=== PATIENT | female | born 1990 | race Caucasian/White ===

== ENCOUNTER 2017-05-21 17:56 | Inpatient (IN) | payer BC ==
--- OUTSIDE RECORDS SUMMARY | 2017-05-21 18:01 | XMS REPORT | Continuity of Care Document ---
:1990 Author Organization [facility] [place] [address] Care Team Providers Name Role Phone Provider, None Per Patient Primary Care Provider Unavailable Source Comments This disclosure is being made pursuant to the [employer] program and maynot contain all information available regarding this patient.[facility] Active Allergies and Adverse Reactions Allergen Noted Date Severity Reactions Comments Sulfa Antibiotics 06/10/2014 High Hives Current Medications Be aware that medications may not be up to date as of this document. Alwaysverify current medications with the patient. Prescription Sig. Disp. Refills Start Date End Date Status Multiple Vitamin Take by mouth. Active (MULTIVITAMIN) capsule zolpidem (AMBIEN) 10 MG Take 10 mg by Active tablet mouth. lidocaine (LIDODERM) 5 % Place 1 patch 5 patch 0 07/03/2014 Active onto the skin daily. cyclobenzaprine Take 1 tablet 30 tablet 0 07/21/2014 Active (FLEXERIL) 10 MG tablet by mouth 2 (two) times daily as needed for Muscle spasms. naproxen (NAPROSYN) 500 1 tab by mouth 30 tablet 1 10/10/2014 Active MG tablet 1-2 times daily with food as needed for pain. 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 Dx); Antibiotic-induced yeast infection Social History Tobacco Use Types Packs/Day Years Used Date Never Smoker Smokeless Tobacco: Never Used Alcohol Use Drinks/Week oz/Week Comments Yes Alcoholic Drinks/day: CURRENT ALCOHOL USER Last Filed Vital Signs Vital Sign Reading Time Taken Blood Pressure 107/61 03/15/2017 2:45 PM CDT Pulse 94 03/15/2017 2:45 PM CDT Temperature 35.3 C (95.6 F) 03/15/2017 2:45 PM CDT Respiratory Rate 16 03/15/2017 2:45 PM CDT Height 1.626 m (5' 4") 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 Weight 82.555 kg (182 lb) 03/15/2017 2:45 PM CDT Body Mass Index 31.22 03/15/2017 2:45 PM CDT Oxygen Saturation 98% 03/15/2017 2:45 PM CDT Plan of Care Health Maintenance Due Date Last Done Comments Tetanus/Pertussis (1 - Tdap) 2008 Pap Smear 2010 Influenza Immunization (#1) 2016 Results from Last 3 Months Not on file Insurance Payer Benefit Plan / Subscriber ID Type Phone Address Group [employer] [facility] [id number] Out of State [phone] [address] [facility] [place] [address] Home: [place] [phone] [place] [phone]
--- OUTSIDE RECORDS SUMMARY | 2017-05-21 18:15 | XMS REPORT | Continuity of Care Document ---
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
[2017-05-21] MEDS: DEXTROSE 5%-LACTATED RINGERS 1,000 ML IV PRN (19:00)
[2017-05-21] MEDS ORDERED: OXYTOCIN/DEXTROSE 5%-WATER 30 UNITS/500 ML BAG IV ONE (19:25)
[2017-05-21] MEDS ORDERED: RINGER'S SOLUTION,LACTATED 1,000 ML IV ONE (19:25)
[2017-05-21] MEDS ORDERED: LIDOCAINE HCL 50 ML VIAL PERI PRN (19:25)
[2017-05-21] MEDS ORDERED: RINGER'S SOLUTION,LACTATED 1,000 ML IV PRN (19:25)
[2017-05-21] MEDS ORDERED: PENICILLIN G POTASSIUM 5 MILLIONUNT in DEXTROSE 5 % IN WATER 100 ML IV ONE ×2 (20:00)
[2017-05-22] MEDS: PENICILLIN G POTASSIUM 2.5 MILLIONUNT in DEXTROSE 5 % IN WATER 100 ML IV SCH ×4 (00:27→04:15)
[2017-05-22] MEDS ORDERED: ONDANSETRON HCL/PF 2 MG/ML VIAL IV PRN (04:01)
[2017-05-22] MEDS ORDERED: NALOXONE HCL 1 MG/1 ML SYRG IV PRN (04:01)
[2017-05-22] MEDS ORDERED: BUPIVACAINE HCL/0.9 % NACL/PF 250 ML EP PRN (04:01)
[2017-05-22] MEDS ORDERED: fentaNYL CITRATE/PF 50 MCG/ML AMPUL IT SCH (04:15)
--- NOTE | 2017-05-22 04:24 | OR ---
Anesthesia Pre Procedure Eval Date of Service: 05/22/17 Pre Procedure Evaluation: Anesthesia Pre Procedure Evaluation Heart Rate: 75 Blood Pressure: 128/74 Termperature: 36.3 Respiratory Rate: 18 SaO2: 100% DATE: 05/22/2017 TIME: 02 23 INDICATIONS: Active labor, labor pain PAST MEDICAL HISTORY: Primary per patient in active labor requesting labor analgesia EXAM: Heart regular; lungs clear ASSESSMENT OF MEDICAL STATUS: Appropriate candidate for labor analgesia PLANNED PROCEDURE: Combination spinal epidural for labor analgesia Home Medications: HOME MEDICATIONS FLUoxetine HCL [Prozac] 20 mg PO DAILY 05/06/17 [Last Taken 05/21/17] Vit#96/Ferrous Fum/FA [ S] 1 tab PO HS 05/06/17 [Last Taken ] Fexofenadine HCl [Mckenzie Allergy] 180 mg PO DAILY 05/21/17 [Last Taken 05/21/17 ]
[2017-05-22] MEDS: DEXTROSE 5%-LACTATED RINGERS 1,000 ML IV PRN (04:26)
--- NOTE | 2017-05-22 04:49 | OR ---
Anesthesia Procedure Note - Anesthesia Procedure Note Date of Service: 05/22/17 Narrative: 05/22/17 04:46 ANESTHESIA PROCEDURE NOTE Date of Procedure: 05/22/2017 Time of procedure: 02 23. Performed by: BELL Nuñez CRNA, MSN Sales Support Rep: Korin Schwartz RN. Preprocedure diagnosis: Active labor, labor pain. Post procedure diagnosis: Same. Procedure:Epidural for labor analgesia L3 4. Indications: Labor pains. Findings: See below. Details of the procedure: The patient was placed on the side of the bed in sitting positionand prepped with DuraPrep then draped in a sterile fashion. Lidocaine 1% was infiltrated to the skin and subcutaneous tissues at the level of the L3 4 interspace. An 18-gauge Touhy needle was used to approach the epidural space with loss of resistance technique. Once loss of resistance was achieved a 24-gauge Pencan needle was passed through the epidural needle and CSF was contacted. After CSF returned fentanyl 20 g of fentanyl was injected in the spinal needle was removed the epidural catheter was then threaded approximately 4 cm in the epidural needle was removed. The catheter was taped in place and after careful aspiration 3 mL of 1.5% lidocaine with 1-200,000 epinephrine was injected without change in maternal heart rate or sensorium. . EBL: Minimal. Fluids: N/A. Specimen: N/A. Post procedure condition: The patient tolerated the procedure well with good relief. No complications were noted. Thank you for this consultation. Oskar Francis CRNA, BELL, MSN
[2017-05-22] MEDS ORDERED: BISACODYL 10 MG SUPP.RECT RC PRN (08:06)
[2017-05-22] MEDS ORDERED: HYDROCORTISONE 30 APPL TUBE TP PRN (08:06)
[2017-05-22] MEDS ORDERED: OXYTOCIN/DEXTROSE 5%-WATER 30 UNITS/500 ML BAG IV ONE (08:06)
[2017-05-22] MEDS ORDERED: BENZOCAINE/MENTHOL 81 SPRAY CAN TP PRN (08:06)
[2017-05-22] MEDS ORDERED: SENNOSIDES 8.6 MG TABLET PO PRN (08:06)
[2017-05-22] MEDS ORDERED: oxyCODONE HCL/ACETAMINOPHEN 1 TAB TABLET PO PRN (08:06)
--- NOTE | 2017-05-22 08:11 | PN ---
Progess Note - Interim Narrative: 05/22/17 08:07 Spontaneous Vaginal Delivery Viable male with APGARS of 8 at 1 min and 9 at 5 min. Presentation was JULIA at 0748. No nuchal cord. Anterior and posterior shoulders delivered without difficulty. The baby was placed on the maternal abdomen and dried and stimulated. The cord was clamped and cut after approximately 60 seconds. Weight: 5 pounds 13.0 ounces or 2638 g Placenta was delivered spontaneously and intact. No lacerations were noted. Estimated blood loss: 200 ml Mother and baby tolerated delivery well. History for MU Definition: * The number of deliveries resulting in a live the patient experienced prior to current hospitalization * The previous delivery of live twins or any live multiple gestation is considered one live event. *If primagravida or nulliparous is documented select zero for the number of previous live births. Live Events: 0
[2017-05-22] MEDS: IBUPROFEN 800 MG TABLET PO PRN ×2 (13:33→21:40)
[2017-05-22] MEDS: oxyCODONE HCL/ACETAMINOPHEN 1 TAB TABLET PO PRN ×3 (13:33→21:40)
[2017-05-22] MEDS: DOCUSATE SODIUM 100 MG CAPSULE PO SCH ×2 (15:20→21:29)
[2017-05-22] MEDS: GLYCERIN/WITCH HAZEL LEAF 40 APPL BOX TP PRN (17:40)
[2017-05-23] MEDS: oxyCODONE HCL/ACETAMINOPHEN 1 TAB TABLET PO PRN ×2 (01:40→23:39)
[2017-05-23] MEDS: IBUPROFEN 800 MG TABLET PO PRN ×3 (04:44→19:25)
--- NOTE | 2017-05-23 08:59 | PN ---
Progess Note - Interim Narrative: 05/23/17 08:58 progress note Subjective: The patient is doing well. She is ambulating, voiding, tolerating by mouth. She has minimal pain and moderate lochia. Objective: General: No acute distress Abdomen: Soft, nontender, fundus is firm just below the umbilicus Extremities: minimal edema, nontender to palpation Assessment and plan: day 1 Feeding: breast Pain: Controlled with by mouth medication Routine care.
[2017-05-23] MEDS: DOCUSATE SODIUM 100 MG CAPSULE PO SCH ×2 (09:45→20:27)
[2017-05-23] MEDS: GLYCERIN/WITCH HAZEL LEAF 40 APPL BOX TP PRN (22:23)
[2017-05-24] MEDS: oxyCODONE HCL/ACETAMINOPHEN 1 TAB TABLET PO PRN (07:21)
[2017-05-24] MEDS: IBUPROFEN 800 MG TABLET PO PRN (07:21)
[2017-05-24] MEDS: DOCUSATE SODIUM 100 MG CAPSULE PO SCH ×2 (07:21→10:39)
--- NOTE | 2017-05-24 09:08 | PN ---
Progess Note - Interim Narrative: 05/24/17 09:07 progress note Subjective: The patient is doing well. She is ambulating, voiding, tolerating by mouth. She has minimal pain and moderate lochia. Objective: General: No acute distress Abdomen: Soft, nontender, fundus is firm just below the umbilicus Extremities: minimal edema, nontender to palpation Assessment and plan: day 2 Feeding: Breast Pain: Controlled with by mouth medication Routine care.
[2017-05-24 15:13] VITALS: BP 123/71
== END 2017-05-24 17:50 | disposition home or self-care (01) | DRG 775 ==
LOC: OBCLINIC 17:56 → OB 18:09 → MS 05-23 14:59
PROVIDERS: ADMIT Obstetrics & Gynecology Gynecologic Oncology; ATTEND Obstetrics & Gynecology Gynecologic Oncology
PROC: 10E0XZZ Delivery of Products of Conception, External Approach (ICD-10-PCS; principal; 2017-05-22)
PROC: 4A1HXCZ Monitoring of Products of Conception, Cardiac Rate, External Approach (ICD-10-PCS; 2017-05-22)
PROC: 00HU33Z Insertion of Infusion Device into Spinal Canal, Percutaneous Approach (ICD-10-PCS; 2017-05-22)
DX: O60.14X0 Preterm labor third trimester with preterm delivery third trimester, not applicable or unspecified (principal); O99.824 Streptococcus B carrier state complicating childbirth; F41.9 Anxiety disorder, unspecified; Z3A.36 36 weeks gestation of pregnancy; Z37.0 Single live birth